=== PATIENT | female | born 1980 | race Caucasian/White ===

== ENCOUNTER 2021-02-23 07:36 | Inpatient (IN) ==
[2021-02-23] MEDS ORDERED: OXYTOCIN 30 UNITS/500 ML BAG IV PRN (07:45)
[2021-02-23 08:00] LABS: Hematocrit (blood only) 38.1 % (37-47); Hemoglobin 13.1 g/dL (12.0-16.0); Mean Corpuscular Hgb Conc 34.4 g/dL (32-36); Mean Corpuscular Volume 93.2 fL (80-100); Mean Platelet Volume 11.5 fL (7.4-10.4); Platelet Count 170 K/uL (130-400); RDW Coefficient of Variation 13.7 % (11.5-14.5); RDW Standard Deviation 47.2 fL (36.4-46.3); Red Blood Count 4.09 M/uL (4.2-5.4); White Blood Count 8.77 K/uL (4.8-10.8)
--- NOTE | 2021-02-23 09:03 | History & Physical Report ---
Date of Service February 23, 2021 Assessment & Plan (1) Post-dates : (2) Patient desires vaginal after section (): Admission and Anticipated Discharge Date Admission Date: February 23, 2021 History of Present Illness Chief Complaint: induction of labor Primary Care Provider: Haritha Khan PA-C 40 F [id number] admitted for induction of labor for post-dates for post- dates. Previous with scheduled not in labor. Allergies Allergy/AdvReac Type Severity Reaction Status Date / Time No Known Allergies Allergy Verified 02/23/21 09:00 Home Medications Medication Instructions Recorded Confirmed Type prenat.vits,vignesh,iim-njna-iqsin 1 tab PO DAILY 02/23/21 02/23/21 History [ Vitamin] Patient History Medical History (Updated 02/23/21 @ 09:02 by Darrick Gonzales MD) No known health problems Surgical History (Updated 02/23/21 @ 09:02 by Darrick Gonzales MD) Previous section 2004 Social History Smoking Status: Never smoker Second Hand Exposure: No; Do You Dip or Chew Tobacco: No; Tobacco Cessation Education Requested by Patient: No Hx Alcohol Use: No Hx Substance Use: No Preferred Language: Nigerien Communication Ability: Effective 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 Beliefs That Will Affect Care: None marital status: Current Living Situation: Spouse Other Information That Helps Us Care for You: No Feels Safe at Home: Yes Safety Concerns: Feels Safe At This Time Assistive Devices: Contacts and Glasses OB History x1 Review of Systems All systems reviewed & are unremarkable except as noted in HPI & below Physical Exam Constitutional: WD/WN, vitals as above well developed, well groomed and comfortable Eyes: PERRL, conjunctivae normal, anicteric sclerae Respiratory: normal respiratory effort, lungs clear to auscultation Cardiovascular: Rate/Rhythm: regular rate and regular rhythm Chest (Breasts): normal inspection/palpation of breasts Gastrointestinal (Abdomen): Inspection/Auscultation: abdomen normal to inspection Percussion/Palpation: abdomen soft Skin: no rashes, warm and dry Neurologic: patellar DTR's 2+ bilat, sensation intact Psychiatric: A+Ox3, euthymic affect Genitourinary: normal external appearance OB Exam Abdomen: + heart tones, + vertex, + estimated weight (7-7.5 lbs) and + irregular contractions Manual OB Exam: + cervical dilation fingertip, + cervical effacement 50% and + station high OB Exam Monitor Tracing: + external FHT monitor used, + external uterine monitor used and + category I Cervix soft Results & Data ([place]) Vital Signs (Past 12 Hours) Vital Signs Temp Pulse Resp BP 02/23/21 07:54 36.6 C 72 20 123/83 02/23/21 07:50 72 123/83 Laboratory Results GBS is negative Covid is pending Code Status & VTE Plan VTE Prophylaxis Plan VTE Prophylaxis will be ordered: No
[2021-02-23] MEDS: LACTATED RINGER'S 1,000 ML IV PRN ×3 (10:16→20:11)
[2021-02-23] MEDS: OXYTOCIN 30 UNITS/500 ML BAG IV PRN (10:17)
[2021-02-23] MEDS: BUTORPHANOL TARTRATE 1 MG/ML VIAL IV PRN ×2 (14:54→16:57)
--- NOTE | 2021-02-23 18:49 | Labor Progress Brief Note ---
Date of Service February 23, 2021 Subjective Reason For Note: Requested By Patient Assessment & Plan Admission and Anticipated Discharge Date Admission Date: February 23, 2021 Physical Exam Genitourinary: Manual OB Exam: + cervical dilation 1 cm, + cervical effacement 60% and + station -2 OB Exam Monitor Tracing: + external FHT monitor used, + external uterine monitor used and + category I option for patient to continue labor, stop Oxytocin and place Edward in cervix with rest overnight or proceed with if desired Results & Data ([facility]) Vital Signs (Past 12 Hours) Vital Signs Temp Pulse Resp BP 02/23/21 17:17 80 20 110/75 02/23/21 17:02 36.6 C 72 20 108/76 02/23/21 15:19 71 111/76 02/23/21 13:55 36.4 C L 20 02/23/21 13:51 72 98/62 L 02/23/21 12:50 67 99/63 L 02/23/21 12:04 79 99/68 L 02/23/21 10:54 86 102/70 02/23/21 09:51 83 116/70 02/23/21 09:49 36.6 C 83 20 116/70 02/23/21 07:54 36.6 C 72 20 123/83 02/23/21 07:50 72 123/83
[2021-02-23] MEDS ORDERED: ePHEDrine sulfate 50 MG/ML AMP ONE (18:53)
[2021-02-23] MEDS ORDERED: fentaNYL citrate 100 MCG/2 ML VIAL ONE (18:53)
[2021-02-23] MEDS ORDERED: BUPIVACAINE 0.25% 30 ML VIAL ONE (18:53)
[2021-02-23] MEDS ORDERED: SODIUM CHLORIDE 0.9% INJ 10 ML VIAL ONE (18:53)
[2021-02-23] MEDS ORDERED: fentaNYL 2MCG/ML ROPIVACAINE 1.25MG/ML 100 ML BAG EPI ONE (18:54)
--- NOTE | 2021-02-23 19:12 | Anesthesiology Consultation ---
Date of Service February 23, 2021 Assessment & Plan (1) Encounter for pre-operative examination: Chart Review Chart Review: Acceptable Risk for Labor Epidural History Height/Weight Height: 5 ft 5 in Weight: 72.575 kg Allergies Allergy/AdvReac Type Severity Reaction Status Date / Time No Known Allergies Allergy Verified 02/23/21 09:00 Medications Home Medications Medication Instructions Recorded Confirmed Last Taken prenat.vits,vignesh,ost-eulb-jiiow 1 tab PO DAILY 02/23/21 02/23/21 02/22/21 08:00 [ Vitamin] Active Medications Generic Name Dose Route Start Last Admin Trade Name Freq PRN Reason Stop Dose Admin Butorphanol Tartrate 1 mg 02/23/21 14:32 02/23/21 16:57 Butorphanol Tartrate 1 Mg/Ml Vial IV 03/25/21 14:31 1 mg Q2HWA PRN Administration Pain Lactated Ringer's 1,000 mls @ 125 mls/hr 02/23/21 07:45 02/23/21 18:25 Lr IV 02/25/21 07:44 125 mls/hr .Q8H PRN Administration L&D Protocol Protocol Oxytocin 30 units in 500 mls @ 0 mls/hr 02/23/21 08:54 02/23/21 19:04 Pitocin IV 02/25/21 08:53 0 units/hr .Q0M PRN 0 mls/hr Labor Induction/Augmentation Titration Protocol 0 UNITS/HR Past Medical History Medical History No known health problems Past Surgical History Surgical History Previous section 2004 Social History Smoking Status: Never smoker Do You Dip or Chew Tobacco: No Hx Alcohol Use: No Hx Substance Use: No substance use type: does not use Physical Exam Vital Signs Last Vital Signs Temp 36.6 C 02/23/21 17:02 Pulse 80 02/23/21 17:17 Resp 20 02/23/21 17:17 BP 110/75 02/23/21 17:17 Testing Laboratory Results 02/23/21 07:51 Blood Type A Positive 02/23/21 07:51 Antibody Screen NEGATIVE 02/23/21 07:51
[2021-02-23] MEDS ORDERED: ONDANSETRON INJ 2 MG/ML 2 ML VIAL IV PRN (19:34)
[2021-02-23] MEDS ORDERED: NALOXONE HCL 1 MG in SODIUM CHLORIDE 0.9% 1000ML 1,000 ML IV PRN (19:34)
[2021-02-23] MEDS ORDERED: ePHEDrine sulfate 50 MG/ML AMP IV PRN (19:34)
[2021-02-23] MEDS ORDERED: NALOXONE HCL 0.4 MG/1 ML VIAL/CARP IV PRN (19:34)
--- NOTE | 2021-02-23 20:46 | Labor Progress Brief Note ---
Date of Service February 23, 2021 Assessment & Plan Admission and Anticipated Discharge Date Admission Date: February 23, 2021 Physical Exam Genitourinary: Manual OB Exam: + cervical dilation 1 cm, + cervical effacement 60% and + station high OB Exam Monitor Tracing: + external FHT monitor used, + external uterine monitor used and + category I Edward placed in cervix with 30 ml. saline Edward catheter placed in bladder Results & Data ([facility]) Vital Signs (Past 12 Hours) Vital Signs Temp Pulse Resp BP Pulse Ox 02/23/21 20:42 101 H 100 02/23/21 20:37 80 100 02/23/21 20:34 95 H 102/70 02/23/21 20:32 71 100/64 97 02/23/21 20:30 64 103/61 02/23/21 20:28 96 H 96/61 L 02/23/21 20:27 94 H 99 02/23/21 20:26 95 H 97/61 L 02/23/21 20:24 62 105/62 02/23/21 20:22 65 100/59 L 99 02/23/21 20:20 113 H 98/62 L 02/23/21 20:18 85 101/60 02/23/21 20:17 68 100 02/23/21 20:16 64 106/63 02/23/21 20:14 57 L 103/60 02/23/21 20:13 56 L 99/61 L 02/23/21 20:12 56 L 98 02/23/21 20:10 64 82/50 L 02/23/21 20:09 76 91 02/23/21 20:07 98 H 100 02/23/21 20:02 87 97 02/23/21 19:58 62 99/55 L 02/23/21 19:57 65 94 02/23/21 19:55 18 02/23/21 19:52 94 H 98 02/23/21 19:50 18 02/23/21 19:47 66 96 02/23/21 19:45 18 02/23/21 19:42 71 98 02/23/21 19:40 18 02/23/21 19:39 83 96/57 L 02/23/21 19:38 78 99/59 L 02/23/21 19:37 102 H 97 02/23/21 19:36 63 102/61 02/23/21 19:35 18 02/23/21 19:34 72 105/66 02/23/21 19:32 68 101/56 L 98 02/23/21 19:30 20 02/23/21 19:27 74 99 02/23/21 19:25 89 79 L 02/23/21 19:22 75 100 02/23/21 19:15 36.8 C 20 02/23/21 17:17 80 20 110/75 02/23/21 17:02 36.6 C 72 20 108/76 02/23/21 15:19 71 111/76 02/23/21 13:55 36.4 C L 20 02/23/21 13:51 72 98/62 L 02/23/21 12:50 67 99/63 L 02/23/21 12:04 79 99/68 L 02/23/21 10:54 86 102/70 02/23/21 09:51 83 116/70 02/23/21 09:49 36.6 C 83 20 116/70
[2021-02-24] MEDS: LACTATED RINGER'S 1,000 ML IV PRN ×2 (03:50→11:54)
[2021-02-24] MEDS: fentaNYL 2MCG/ML ROPIVACAINE 1.25MG/ML 100 ML BAG EPI PRN ×2 (04:20→13:20)
--- NOTE | 2021-02-24 07:48 | Obstetrical Progress Note ---
Date of Service February 24, 2021 Assessment & Plan Admission and Anticipated Discharge Date Admission Date: February 23, 2021 Subjective Patient seen and examined. I reviewed her records from office and confirmed with the patient. She is a 40-year-old female with history of prior in 2004 for abnormality. She opted for TOLAC/, understood the risks and signed an informed consent yesterday with Dr. Hoff. She denies any medical problems, denies smoking, alcohol or drug use. They she denies any history of STDs, including genital herpes, chlamydia or gonorrhea. Her has been uncomplicated except advanced maternal age and opted to decline genetic testing. GBS is negative. She was admitted yesterday and received low-dose of oxytocin per protocol and then Edward bulb was inserted last night around 9 PM with again low dose of Pitocin at 1 milliunits/min for cervical ripening. She was painful and received epidural for pain and now comfortable. heart rate had been category 1, toco shows irregular contractions every 5 to 6 minutes. I performed a bedside ultrasound and fetus is vertex. We discussed options either continuing with induction of labor versus repeat . She states she wants to try TOLAC/ and is open to repeat if it fails. Vaginal exam, Edward bulb was in the upper vagina and was removed by myself. Cervix is 2 cm dilated 70% effaced head -2 with a bulging amniotic bag, AROM was done after verbal consent was obtained and clear fluid was obtained. We will continue to monitor closely and increase low-dose oxytocin per protocol. All questions were answered. Results & Data ([facility]) Vital Signs (Past 12 Hours) Vital Signs Temp Pulse Resp BP Pulse Ox 02/24/21 07:42 85 99 02/24/21 07:38 83 91 02/24/21 07:37 96 H 96 02/24/21 07:35 85 112/69 02/24/21 07:32 86 100 02/24/21 07:27 80 99 02/24/21 07:22 87 100 02/24/21 07:20 75 100/64 02/24/21 07:17 71 20 99 02/24/21 07:12 75 99 02/24/21 07:09 36.7 C 73 20 106/64 98 02/24/21 07:07 74 99 02/24/21 07:05 85 106/64 02/24/21 07:02 95 H 100 02/24/21 06:57 80 97 02/24/21 06:52 91 H 100 02/24/21 06:50 75 100/64 02/24/21 06:47 67 98 02/24/21 06:42 85 96 02/24/21 06:37 75 98 02/24/21 06:35 69 102/62 02/24/21 06:32 78 99 02/24/21 06:27 62 96 02/24/21 06:22 69 96 02/24/21 06:20 96 H 97/63 L 02/24/21 06:17 70 96 02/24/21 06:12 95 H 96 02/24/21 06:07 69 96 02/24/21 06:05 81 94/65 L 02/24/21 06:02 82 96 02/24/21 05:57 79 96 02/24/21 05:52 101 H 96 02/24/21 05:50 106 H 85/60 L 02/24/21 05:47 102 H 96 02/24/21 05:42 74 95 02/24/21 05:37 93 H 96 02/24/21 05:35 66 99/58 L 02/24/21 05:32 68 96 02/24/21 05:27 95 H 96 02/24/21 05:22 71 96 02/24/21 05:21 63 97/57 L 02/24/21 05:17 80 96 02/24/21 05:12 89 96 02/24/21 05:07 70 96 02/24/21 05:06 76 98/61 L 02/24/21 05:02 93 H 96 02/24/21 05:01 18 02/24/21 04:57 66 96 02/24/21 04:52 85 97 02/24/21 04:50 80 94/62 L 02/24/21 04:47 67 96 02/24/21 04:42 71 96 02/24/21 04:37 70 97 02/24/21 04:35 68 96/57 L 02/24/21 04:32 77 96 02/24/21 04:30 16 02/24/21 04:27 75 96 02/24/21 04:26 36.7 C 18 02/24/21 04:22 79 98 02/24/21 04:20 84 98/63 L 02/24/21 04:17 75 98 02/24/21 04:12 79 98 02/24/21 04:07 65 97 02/24/21 04:05 74 98/64 L 02/24/21 04:02 66 98 02/24/21 04:00 16 02/24/21 03:57 78 96 02/24/21 03:52 64 97 02/24/21 03:51 64 104/58 L 02/24/21 03:47 81 96 02/24/21 03:42 76 95 02/24/21 03:37 77 96 02/24/21 03:35 77 98/58 L 02/24/21 03:32 98 H 96 02/24/21 03:27 69 96 02/24/21 03:22 78 96 02/24/21 03:21 67 98/56 L 02/24/21 03:17 73 96 02/24/21 03:12 69 96 02/24/21 03:07 86 96 02/24/21 03:05 86 94/58 L 02/24/21 03:02 74 96 02/24/21 03:00 16 02/24/21 02:57 82 96 02/24/21 02:52 71 97 02/24/21 02:51 68 96/56 L 02/24/21 02:47 89 96 02/24/21 02:42 69 96 02/24/21 02:37 79 96 02/24/21 02:35 67 94/56 L 02/24/21 02:32 69 96 02/24/21 02:30 16 02/24/21 02:27 80 96 02/24/21 02:22 71 96 02/24/21 02:20 72 95/56 L 02/24/21 02:17 76 96 02/24/21 02:12 71 96 02/24/21 02:07 63 97 02/24/21 02:05 59 L 97/56 L 02/24/21 02:02 58 L 94 02/24/21 01:57 108 H 98 02/24/21 01:52 69 97 02/24/21 01:50 90 95/65 L 02/24/21 01:47 89 97 02/24/21 01:42 86 97 02/24/21 01:37 100 H 97 02/24/21 01:35 69 99/62 L 02/24/21 01:32 67 97 02/24/21 01:27 96 H 97 02/24/21 01:22 65 97 02/24/21 01:21 66 104/63 02/24/21 01:17 101 H 96 02/24/21 01:12 98 H 96 02/24/21 01:07 99 H 97 02/24/21 01:05 100 H 92/63 L 02/24/21 01:02 88 96 02/24/21 01:00 18 02/24/21 00:57 95 H 97 02/24/21 00:52 67 97 02/24/21 00:50 105 H 90/64 L 02/24/21 00:47 91 H 97 02/24/21 00:42 98 H 97 02/24/21 00:37 102 H 97 02/24/21 00:35 61 105/58 L 02/24/21 00:32 76 96 02/24/21 00:30 16 02/24/21 00:27 89 97 02/24/21 00:22 93 H 97 02/24/21 00:20 88 102/65 02/24/21 00:17 102 H 96 02/24/21 00:12 99 H 97 02/24/21 00:07 99 H 98 02/24/21 00:05 99 H 95/62 L 02/24/21 00:02 75 97 02/24/21 00:00 16 02/23/21 23:57 67 96 02/23/21 23:52 61 97 02/23/21 23:50 74 102/64 02/23/21 23:47 81 98 02/23/21 23:42 60 98 02/23/21 23:37 76 97 02/23/21 23:36 73 111/62 02/23/21 23:32 65 98 02/23/21 23:27 72 98 02/23/21 23:22 63 98 02/23/21 23:20 74 106/73 02/23/21 23:17 101 H 97 02/23/21 23:12 65 97 02/23/21 23:07 82 98 02/23/21 23:05 89 102/69 02/23/21 23:02 74 98 05/25/21 23:01 36.7 C 18 02/23/21 22:57 76 96 02/23/21 22:52 67 97 02/23/21 22:50 69 100/63 05 22:47 90 96 02/23/21 22:42 67 96 02/23/21 22:37 74 96 02/23/21 22:35 90 102/69 05 22:32 75 96 02/23/21 22:30 18 02/23/21 22:27 83 96 02/23/21 22:22 81 96 02/23/21 22:20 93 H 99/66 L 02/23/21 22:17 92 H 97 02/23/21 22:12 66 96 02/23/21 22:07 73 96 02/23/21 22:05 72 103/61 02/23/21 22:02 74 97 02/23/21 22:00 16 02/23/21 21:57 88 96 02/23/21 21:52 67 97 02/23/21 21:50 85 109/65 05 21:47 96 H 96 02/23/21 21:42 67 96 02/23/21 21:37 98 H 96 02/23/21 21:35 78 108/63 02/23/21 21:32 68 96 02/23/21 21:30 16 02/23/21 21:27 96 H 96 02/23/21 21:22 70 96 02/23/21 21:21 96 H 107/66 05 21:17 87 97 02/23/21 21:12 69 97 02/23/21 21:07 75 97 02/23/21 21:05 91 H 108/67 05 21:02 91 H 100 05 21:00 16 05 20:57 72 98 05 20:52 83 98 05 20:51 67 106/64 05 20:47 94 H 100 0521 20:45 18 05 20:42 101 H 100 05 20:37 80 100 05 20:34 95 H 102/70 05 20:32 71 100/64 97 05 20:30 64 18 103/61 02/23/21 20:28 96 H 96/61 L 02/23/21 20:27 94 H 99 02/23/21 20:26 95 H 97/61 L 02/23/21 20:24 62 105/62 02/23/21 20:22 65 100/59 L 99 02/23/21 20:20 113 H 98/62 L 02/23/21 20:18 85 101/60 02/23/21 20:17 68 100 02/23/21 20:16 64 106/63 02/23/21 20:15 18 02/23/21 20:14 57 L 103/60 02/23/21 20:13 56 L 99/61 L 02/23/21 20:12 56 L 98 02/23/21 20:10 64 82/50 L 02/23/21 20:09 76 91 02/23/21 20:07 98 H 100 02/23/21 20:02 87 97 02/23/21 20:00 18 02/23/21 19:58 62 99/55 L 02/23/21 19:57 65 94 02/23/21 19:55 18 02/23/21 19:52 94 H 98 02/23/21 19:50 18 02/23/21 19:47 66 96 02/23/21 19:45 18
[2021-02-24] MEDS ORDERED: CALCIUM CARBONATE 500 MG CHEWABLE TAB PO PRN (07:49)
[2021-02-24] MEDS: OXYTOCIN 30 UNITS/500 ML BAG IV PRN (10:06)
[2021-02-24] MEDS ORDERED: NURSING L&D Epidural Breakthrough Pain Update ONE (13:30)
--- NOTE | 2021-02-24 13:43 | Obstetrical Progress Note ---
Date of Service February 24, 2021 Assessment & Plan Admission and Anticipated Discharge Date Admission Date: February 23, 2021 Subjective Patient is seen and examined She feels pressure FHR had been categ I Emma: ctxs q 2-3 min VE: 3-4 cm/ 70-90% ( one side is thinner), -2, bloody show+ Discussed continue with TOLAC/ or Repeat C section She wants to try longer Continue to monitor closely( both FHR and VB) Results & Data ([facility]) Vital Signs (Past 12 Hours) Vital Signs Temp Pulse Resp BP Pulse Ox 02/24/21 13:37 81 98 02/24/21 13:32 93 H 102/59 L 96 02/24/21 13:27 81 97 02/24/21 13:22 84 98 02/24/21 13:20 90 93 02/24/21 13:17 89 96 02/24/21 13:12 77 97 02/24/21 13:11 36.7 C 75 20 106/66 95 02/24/21 13:10 87 94 02/24/21 13:07 95 H 98 02/24/21 13:02 83 98 02/24/21 13:01 74 106/66 02/24/21 12:59 81 93 02/24/21 12:57 70 100 02/24/21 12:52 78 96 02/24/21 12:47 78 96 02/24/21 12:42 76 98 02/24/21 12:37 70 100 02/24/21 12:32 75 98 02/24/21 12:30 76 122/66 02/24/21 12:27 86 97 02/24/21 12:26 89 90 02/24/21 12:22 80 100 02/24/21 12:18 73 92 02/24/21 12:17 79 98 02/24/21 12:12 71 98 02/24/21 12:07 75 96 02/24/21 12:02 75 99 02/24/21 12:00 72 105/56 L 02/24/21 11:57 69 99 02/24/21 11:52 71 96 02/24/21 11:47 70 97 02/24/21 11:42 68 96 02/24/21 11:37 80 96 02/24/21 11:32 70 98 02/24/21 11:31 67 96/52 L 02/24/21 11:27 74 96 02/24/21 11:22 70 97 02/24/21 11:17 70 98 02/24/21 11:12 71 98 02/24/21 11:07 71 98 02/24/21 11:06 82 93 02/24/21 11:02 78 138/56 L 100 02/24/21 10:58 36.7 C 20 02/24/21 10:57 78 99 02/24/21 10:52 80 99 02/24/21 10:49 74 92 02/24/21 10:47 76 99 02/24/21 10:42 73 98 02/24/21 10:37 82 99 02/24/21 10:32 74 100 02/24/21 10:31 83 97/56 L 02/24/21 10:30 20 02/24/21 10:27 76 98 02/24/21 10:22 77 100 02/24/21 10:17 77 99 02/24/21 10:16 72 93 02/24/21 10:12 74 100 02/24/21 10:07 76 99 02/24/21 10:02 76 97/54 L 99 02/24/21 10:00 20 02/24/21 09:57 76 99 02/24/21 09:52 86 100 02/24/21 09:47 79 100 02/24/21 09:42 80 99 02/24/21 09:37 77 100 02/24/21 09:36 90 92 02/24/21 09:32 73 99 02/24/21 09:31 72 105/57 L 02/24/21 09:30 20 02/24/21 09:27 68 99 02/24/21 09:22 75 98 02/24/21 09:17 74 100 02/24/21 09:15 81 93 02/24/21 09:12 78 99 02/24/21 09:07 76 100 02/24/21 09:06 20 02/24/21 09:02 77 102/62 95 02/24/21 09:00 36.7 C 02/24/21 08:57 73 99 02/24/21 08:52 78 100 02/24/21 08:47 71 98 02/24/21 08:42 75 99 02/24/21 08:37 71 99 05/26/21 08:32 69 100 02/24/21 08:30 79 106/68 02/24/21 08:29 79 93 02/24/21 08:27 73 100 02/24/21 08:22 85 99 02/24/21 08:20 75 102/66 02/24/21 08:17 71 100 02/24/21 08:12 72 99 02/24/21 08:07 69 99 02/24/21 08:06 74 112/66 02/24/21 08:02 74 98 02/24/21 08:00 20 02/24/21 07:57 77 99 02/24/21 07:52 79 79 L 02/24/21 07:51 71 117/62 02/24/21 07:47 84 99 02/24/21 07:46 81 93 02/24/21 07:45 20 02/24/21 07:42 85 99 02/24/21 07:38 83 91 02/24/21 07:37 96 H 96 02/24/21 07:35 85 112/69 02/24/21 07:32 86 100 02/24/21 07:30 20 02/24/21 07:27 80 99 02/24/21 07:22 87 100 02/24/21 07:20 75 100/64 02/24/21 07:17 71 20 99 02/24/21 07:12 75 99 02/24/21 07:09 36.7 C 73 20 106/64 98 02/24/21 07:07 74 99 02/24/21 07:05 85 106/64 02/24/21 07:02 95 H 100 02/24/21 06:57 80 97 02/24/21 06:52 91 H 100 02/24/21 06:50 75 100/64 02/24/21 06:47 67 98 02/24/21 06:42 85 96 02/24/21 06:37 75 98 02/24/21 06:35 69 102/62 02/24/21 06:32 78 99 02/24/21 06:27 62 96 02/24/21 06:22 69 96 02/24/21 06:20 96 H 97/63 L 02/24/21 06:17 70 96 02/24/21 06:12 95 H 96 02/24/21 06:07 69 96 02/24/21 06:05 81 94/65 L 02/24/21 06:02 82 96 02/24/21 05:57 79 96 02/24/21 05:52 101 H 96 02/24/21 05:50 106 H 85/60 L 02/24/21 05:47 102 H 96 02/24/21 05:42 74 95 02/24/21 05:37 93 H 96 02/24/21 05:35 66 99/58 L 02/24/21 05:32 68 96 02/24/21 05:27 95 H 96 02/24/21 05:22 71 96 02/24/21 05:21 63 97/57 L 02/24/21 05:17 80 96 02/24/21 05:12 89 96 02/24/21 05:07 70 96 02/24/21 05:06 76 98/61 L 02/24/21 05:02 93 H 96 02/24/21 05:01 18 02/24/21 04:57 66 96 02/24/21 04:52 85 97 02/24/21 04:50 80 94/62 L 02/24/21 04:47 67 96 02/24/21 04:42 71 96 02/24/21 04:37 70 97 02/24/21 04:35 68 96/57 L 02/24/21 04:32 77 96 02/24/21 04:30 16 02/24/21 04:27 75 96 02/24/21 04:26 36.7 C 18 02/24/21 04:22 79 98 02/24/21 04:20 84 98/63 L 02/24/21 04:17 75 98 02/24/21 04:12 79 98 02/24/21 04:07 65 97 02/24/21 04:05 74 98/64 L 02/24/21 04:02 66 98 02/24/21 04:00 16 02/24/21 03:57 78 96 02/24/21 03:52 64 97 02/24/21 03:51 64 104/58 L 02/24/21 03:47 81 96 02/24/21 03:42 76 95 02/24/21 03:37 77 96 02/24/21 03:35 77 98/58 L 02/24/21 03:32 98 H 96 02/24/21 03:27 69 96 02/24/21 03:22 78 96 02/24/21 03:21 67 98/56 L 02/24/21 03:17 73 96 02/24/21 03:12 69 96 02/24/21 03:07 86 96 02/24/21 03:05 86 94/58 L 02/24/21 03:02 74 96 02/24/21 03:00 16 02/24/21 02:57 82 96 02/24/21 02:52 71 97 02/24/21 02:51 68 96/56 L 02/24/21 02:47 89 96 02/24/21 02:42 69 96 02/24/21 02:37 79 96 02/24/21 02:35 67 94/56 L 02/24/21 02:32 69 96 02/24/21 02:30 16 02/24/21 02:27 80 96 02/24/21 02:22 71 96 02/24/21 02:20 72 95/56 L 02/24/21 02:17 76 96 02/24/21 02:12 71 96 02/24/21 02:07 63 97 02/24/21 02:05 59 L 97/56 L 02/24/21 02:02 58 L 94 02/24/21 01:57 108 H 98 02/24/21 01:52 69 97 02/24/21 01:50 90 95/65 L 02/24/21 01:47 89 97 02/24/21 01:42 86 97
[2021-02-24] MEDS ORDERED: D5W AND NSS 1,000 ML IV SCH (14:00)
--- NOTE | 2021-02-24 15:20 | Obstetrical Progress Note ---
Date of Service February 24, 2021 Assessment & Plan Admission and Anticipated Discharge Date Admission Date: February 23, 2021 Subjective Patient is reevaluated She feels ctxs and pressure VE: 3-4 cm/ 70-90%/ -2, bloody show less, about 10 cc on the pad since last exam FHR categ I, occasional early decels [place]: ctxs q 1-3 min AP: 40 yo at 40.5 wks, IOL for TOLAC/ since yesterday am AROM'ed with pitocin since this morning ( 07:40 am) No significant cervical change nor station Recommended repeat Csection at this point. Discussed the risks of major surgery as bleeding, infection, injury to surrounding organs like bowels bladder, and longer recovery She still does not want Csection Likes to think about it and decide If she decided for Csection she desires tubal ligation. Discussed the risks of BTL and failure with ectopic and possible need for surgery. Discussed alternatives and she understands all. Results & Data ([facility]) Vital Signs (Past 12 Hours) Vital Signs Temp Pulse Resp BP Pulse Ox 02/24/21 15:12 95 H 100 02/24/21 15:07 91 H 100 02/24/21 15:02 85 99/55 L 97 02/24/21 14:57 70 98 02/24/21 14:55 89 90 02/24/21 14:52 85 100 02/24/21 14:47 82 100 02/24/21 14:42 90 95 02/24/21 14:37 85 99 02/24/21 14:34 81 85 L 02/24/21 14:32 80 100 02/24/21 14:31 84 109/67 02/24/21 14:27 82 100 02/24/21 14:22 84 99 02/24/21 14:20 85 93 02/24/21 14:17 84 100 02/24/21 14:13 79 92 02/24/21 14:12 79 96 02/24/21 14:07 86 96 02/24/21 14:03 83 91 02/24/21 14:02 80 110/59 L 99 02/24/21 13:57 79 97 02/24/21 13:56 90 89 L 02/24/21 13:52 85 98 02/24/21 13:47 80 100 02/24/21 13:42 78 98 02/24/21 13:37 81 98 02/24/21 13:32 93 H 102/59 L 96 02/24/21 13:27 81 97 02/24/21 13:22 84 98 02/24/21 13:20 90 93 02/24/21 13:17 89 96 02/24/21 13:12 77 97 02/24/21 13:11 36.7 C 75 20 106/66 95 02/24/21 13:10 87 94 02/24/21 13:07 95 H 98 02/24/21 13:02 83 98 02/24/21 13:01 74 106/66 02/24/21 12:59 81 93 02/24/21 12:57 70 100 02/24/21 12:52 78 96 02/24/21 12:47 78 96 02/24/21 12:42 76 98 02/24/21 12:37 70 100 02/24/21 12:32 75 98 02/24/21 12:30 76 122/66 02/24/21 12:27 86 97 02/24/21 12:26 89 90 02/24/21 12:22 80 100 02/24/21 12:18 73 92 02/24/21 12:17 79 98 02/24/21 12:12 71 98 02/24/21 12:07 75 96 02/24/21 12:02 75 99 02/24/21 12:00 72 105/56 L 02/24/21 11:57 69 99 02/24/21 11:52 71 96 02/24/21 11:47 70 97 02/24/21 11:42 68 96 02/24/21 11:37 80 96 02/24/21 11:32 70 98 02/24/21 11:31 67 96/52 L 02/24/21 11:27 74 96 02/24/21 11:22 70 97 02/24/21 11:17 70 98 02/24/21 11:12 71 98 02/24/21 11:07 71 98 02/24/21 11:06 82 93 02/24/21 11:02 78 138/56 L 100 02/24/21 10:58 36.7 C 20 02/24/21 10:57 78 99 02/24/21 10:52 80 99 02/24/21 10:49 74 92 02/24/21 10:47 76 99 02/24/21 10:42 73 98 02/24/21 10:37 82 99 02/24/21 10:32 74 100 02/24/21 10:31 83 97/56 L 02/24/21 10:30 20 02/24/21 10:27 76 98 02/24/21 10:22 77 100 02/24/21 10:17 77 99 02/24/21 10:16 72 93 02/24/21 10:12 74 100 02/24/21 10:07 76 99 02/24/21 10:02 76 97/54 L 99 02/24/21 10:00 20 02/24/21 09:57 76 99 02/24/21 09:52 86 100 02/24/21 09:47 79 100 02/24/21 09:42 80 99 02/24/21 09:37 77 100 02/24/21 09:36 90 92 02/24/21 09:32 73 99 02/24/21 09:31 72 105/57 L 02/24/21 09:30 20 02/24/21 09:27 68 99 02/24/21 09:22 75 98 02/24/21 09:17 74 100 02/24/21 09:15 81 93 02/24/21 09:12 78 99 02/24/21 09:07 76 100 02/24/21 09:06 20 02/24/21 09:02 77 102/62 95 02/24/21 09:00 36.7 C 02/24/21 08:57 73 99 02/24/21 08:52 78 100 02/24/21 08:47 71 98 02/24/21 08:42 75 99 02/24/21 08:37 71 99 02/24/21 08:32 69 100 02/24/21 08:30 79 106/68 02/24/21 08:29 79 93 02/24/21 08:27 73 100 02/24/21 08:22 85 99 02/24/21 08:20 75 102/66 02/24/21 08:17 71 100 02/24/21 08:12 72 99 02/24/21 08:07 69 99 02/24/21 08:06 74 112/66 02/24/21 08:02 74 98 02/24/21 08:00 20 02/24/21 07:57 77 99 02/24/21 07:52 79 79 L 02/24/21 07:51 71 117/62 02/24/21 07:47 84 99 02/24/21 07:46 81 93 02/24/21 07:45 20 02/24/21 07:42 85 99 02/24/21 07:38 83 91 02/24/21 07:37 96 H 96 02/24/21 07:35 85 112/69 02/24/21 07:32 86 100 02/24/21 07:30 20 02/24/21 07:27 80 99 02/24/21 07:22 87 100 02/24/21 07:20 75 100/64 02/24/21 07:17 71 20 99 02/24/21 07:12 75 99 02/24/21 07:09 36.7 C 73 20 106/64 98 02/24/21 07:07 74 99 02/24/21 07:05 85 106/64 02/24/21 07:02 95 H 100 02/24/21 06:57 80 97 02/24/21 06:52 91 H 100 02/24/21 06:50 75 100/64 02/24/21 06:47 67 98 02/24/21 06:42 85 96 02/24/21 06:37 75 98 02/24/21 06:35 69 102/62 02/24/21 06:32 78 99 02/24/21 06:27 62 96 02/24/21 06:22 69 96 02/24/21 06:20 96 H 97/63 L 02/24/21 06:17 70 96 02/24/21 06:12 95 H 96 02/24/21 06:07 69 96 02/24/21 06:05 81 94/65 L 02/24/21 06:02 82 96 02/24/21 05:57 79 96 02/24/21 05:52 101 H 96 02/24/21 05:50 106 H 85/60 L 02/24/21 05:47 102 H 96 02/24/21 05:42 74 95 02/24/21 05:37 93 H 96 02/24/21 05:35 66 99/58 L 02/24/21 05:32 68 96 02/24/21 05:27 95 H 96 02/24/21 05:22 71 96 02/24/21 05:21 63 97/57 L 02/24/21 05:17 80 96 02/24/21 05:12 89 96 02/24/21 05:07 70 96 02/24/21 05:06 76 98/61 L 02/24/21 05:02 93 H 96 02/24/21 05:01 18 02/24/21 04:57 66 96 02/24/21 04:52 85 97 02/24/21 04:50 80 94/62 L 02/24/21 04:47 67 96 02/24/21 04:42 71 96 02/24/21 04:37 70 97 02/24/21 04:35 68 96/57 L 02/24/21 04:32 77 96 02/24/21 04:30 16 02/24/21 04:27 75 96 02/24/21 04:26 36.7 C 18 02/24/21 04:22 79 98 02/24/21 04:20 84 98/63 L 02/24/21 04:17 75 98 02/24/21 04:12 79 98 02/24/21 04:07 65 97 02/24/21 04:05 74 98/64 L 02/24/21 04:02 66 98 02/24/21 04:00 16 02/24/21 03:57 78 96 02/24/21 03:52 64 97 02/24/21 03:51 64 104/58 L 02/24/21 03:47 81 96 02/24/21 03:42 76 95 02/24/21 03:37 77 96 02/24/21 03:35 77 98/58 L 02/24/21 03:32 98 H 96 02/24/21 03:27 69 96 02/24/21 03:22 78 96 02/24/21 03:21 67 98/56 L 02/24/21 03:17 73 96
--- NOTE | 2021-02-24 15:56 | Obstetrical Progress Note ---
Date of Service February 24, 2021 Assessment & Plan Admission and Anticipated Discharge Date Admission Date: February 23, 2021 Subjective Patient and her thought about this and decided to go forward with Repeat C section and tubal ligation. She understands the risks and signed an informed consent. All questions were answered. Results & Data ([facility]) Vital Signs (Past 12 Hours) Vital Signs Temp Pulse Resp BP Pulse Ox 02/24/21 15:52 98 H 99 02/24/21 15:47 93 H 100 02/24/21 15:42 87 100 02/24/21 15:37 85 100 02/24/21 15:32 88 95 02/24/21 15:31 80 124/68 02/24/21 15:27 92 H 99 02/24/21 15:22 74 98 02/24/21 15:17 36.8 C 86 18 94 02/24/21 15:15 82 88 L 02/24/21 15:12 95 H 100 02/24/21 15:07 91 H 100 02/24/21 15:02 85 99/55 L 97 02/24/21 14:57 70 98 02/24/21 14:55 89 90 02/24/21 14:52 85 100 02/24/21 14:47 82 100 02/24/21 14:42 90 95 02/24/21 14:37 85 99 02/24/21 14:34 81 85 L 02/24/21 14:32 80 100 02/24/21 14:31 84 109/67 02/24/21 14:27 82 100 02/24/21 14:22 84 99 02/24/21 14:20 85 93 02/24/21 14:17 84 100 02/24/21 14:13 79 92 02/24/21 14:12 79 96 02/24/21 14:07 86 96 02/24/21 14:03 83 91 02/24/21 14:02 80 110/59 L 99 02/24/21 13:57 79 97 02/24/21 13:56 90 89 L 02/24/21 13:52 85 98 02/24/21 13:47 80 100 02/24/21 13:42 78 98 02/24/21 13:37 81 98 02/24/21 13:32 93 H 102/59 L 96 02/24/21 13:27 81 97 02/24/21 13:22 84 98 02/24/21 13:20 90 93 02/24/21 13:17 89 96 02/24/21 13:12 77 97 02/24/21 13:11 36.7 C 75 20 106/66 95 02/24/21 13:10 87 94 02/24/21 13:07 95 H 98 02/24/21 13:02 83 98 02/24/21 13:01 74 106/66 02/24/21 12:59 81 93 02/24/21 12:57 70 100 02/24/21 12:52 78 96 02/24/21 12:47 78 96 02/24/21 12:42 76 98 02/24/21 12:37 70 100 02/24/21 12:32 75 98 02/24/21 12:30 76 122/66 02/24/21 12:27 86 97 02/24/21 12:26 89 90 02/24/21 12:22 80 100 02/24/21 12:18 73 92 02/24/21 12:17 79 98 02/24/21 12:12 71 98 02/24/21 12:07 75 96 02/24/21 12:02 75 99 02/24/21 12:00 72 105/56 L 02/24/21 11:57 69 99 02/24/21 11:52 71 96 02/24/21 11:47 70 97 02/24/21 11:42 68 96 02/24/21 11:37 80 96 02/24/21 11:32 70 98 02/24/21 11:31 67 96/52 L 02/24/21 11:27 74 96 02/24/21 11:22 70 97 02/24/21 11:17 70 98 02/24/21 11:12 71 98 02/24/21 11:07 71 98 02/24/21 11:06 82 93 02/24/21 11:02 78 138/56 L 100 02/24/21 10:58 36.7 C 20 02/24/21 10:57 78 99 02/24/21 10:52 80 99 02/24/21 10:49 74 92 02/24/21 10:47 76 99 02/24/21 10:42 73 98 02/24/21 10:37 82 99 02/24/21 10:32 74 100 02/24/21 10:31 83 97/56 L 02/24/21 10:30 20 02/24/21 10:27 76 98 02/24/21 10:22 77 100 02/24/21 10:17 77 99 02/24/21 10:16 72 93 02/24/21 10:12 74 100 02/24/21 10:07 76 99 02/24/21 10:02 76 97/54 L 99 02/24/21 10:00 20 02/24/21 09:57 76 99 02/24/21 09:52 86 100 02/24/21 09:47 79 100 02/24/21 09:42 80 99 02/24/21 09:37 77 100 02/24/21 09:36 90 92 02/24/21 09:32 73 99 02/24/21 09:31 72 105/57 L 02/24/21 09:30 20 02/24/21 09:27 68 99 02/24/21 09:22 75 98 02/24/21 09:17 74 100 02/24/21 09:15 81 93 02/24/21 09:12 78 99 02/24/21 09:07 76 100 02/24/21 09:06 20 02/24/21 09:02 77 102/62 95 02/24/21 09:00 36.7 C 02/24/21 08:57 73 99 02/24/21 08:52 78 100 02/24/21 08:47 71 98 02/24/21 08:42 75 99 02/24/21 08:37 71 99 02/24/21 08:32 69 100 02/24/21 08:30 79 106/68 02/24/21 08:29 79 93 02/24/21 08:27 73 100 02/24/21 08:22 85 99 02/24/21 08:20 75 102/66 02/24/21 08:17 71 100 02/24/21 08:12 72 99 02/24/21 08:07 69 99 02/24/21 08:06 74 112/66 02/24/21 08:02 74 98 02/24/21 08:00 20 02/24/21 07:57 77 99 02/24/21 07:52 79 79 L 02/24/21 07:51 71 117/62 02/24/21 07:47 84 99 02/24/21 07:46 81 93 02/24/21 07:45 20 02/24/21 07:42 85 99 02/24/21 07:38 83 91 02/24/21 07:37 96 H 96 02/24/21 07:35 85 112/69 02/24/21 07:32 86 100 02/24/21 07:30 20 02/24/21 07:27 80 99 02/24/21 07:22 87 100 02/24/21 07:20 75 100/64 02/24/21 07:17 71 20 99 02/24/21 07:12 75 99 02/24/21 07:09 36.7 C 73 20 106/64 98 02/24/21 07:07 74 99 02/24/21 07:05 85 106/64 02/24/21 07:02 95 H 100 02/24/21 06:57 80 97 02/24/21 06:52 91 H 100 02/24/21 06:50 75 100/64 02/24/21 06:47 67 98 02/24/21 06:42 85 96 02/24/21 06:37 75 98 02/24/21 06:35 69 102/62 02/24/21 06:32 78 99 02/24/21 06:27 62 96 02/24/21 06:22 69 96 02/24/21 06:20 96 H 97/63 L 02/24/21 06:17 70 96 02/24/21 06:12 95 H 96 02/24/21 06:07 69 96 02/24/21 06:05 81 94/65 L 02/24/21 06:02 82 96 02/24/21 05:57 79 96 02/24/21 05:52 101 H 96 02/24/21 05:50 106 H 85/60 L 02/24/21 05:47 102 H 96 02/24/21 05:42 74 95 02/24/21 05:37 93 H 96 02/24/21 05:35 66 99/58 L 02/24/21 05:32 68 96 02/24/21 05:27 95 H 96 02/24/21 05:22 71 96 02/24/21 05:21 63 97/57 L 02/24/21 05:17 80 96 02/24/21 05:12 89 96 02/24/21 05:07 70 96 02/24/21 05:06 76 98/61 L 02/24/21 05:02 93 H 96 02/24/21 05:01 18 02/24/21 04:57 66 96 02/24/21 04:52 85 97 02/24/21 04:50 80 94/62 L 02/24/21 04:47 67 96 02/24/21 04:42 71 96 02/24/21 04:37 70 97 02/24/21 04:35 68 96/57 L 02/24/21 04:32 77 96 02/24/21 04:30 16 02/24/21 04:27 75 96 02/24/21 04:26 36.7 C 18 02/24/21 04:22 79 98 02/24/21 04:20 84 98/63 L 02/24/21 04:17 75 98 02/24/21 04:12 79 98 02/24/21 04:07 65 97 02/24/21 04:05 74 98/64 L 02/24/21 04:02 66 98 02/24/21 04:00 16 02/24/21 03:57 78 96
[2021-02-24] MEDS ORDERED: CITRIC ACID/SODIUM CITRATE 15 ML UDC ONE (15:57)
[2021-02-24] MEDS ORDERED: AZITHROMYCIN 500 MG in DEXTROSE 5% 250 ML IV SCH (16:00)
[2021-02-24] MEDS ORDERED: ceFAZolin 2000MG 2,000 MG/15 ML SYR IV SCH (16:00)
[2021-02-24] MEDS ORDERED: LACTATED RINGER'S 1,000 ML IV SCH ×3 (16:00→18:30)
[2021-02-24] MEDS ORDERED: CITRIC ACID/SODIUM CITRATE 15 ML UDC PO SCH (16:00)
[2021-02-24] MEDS ORDERED: LIDOCAINE 2%/EPINEPHRINE 1:200,000 20 ML SDV ONE (16:03)
[2021-02-24 16:22] LABS: Basophils # (auto) 0.01 K/uL (0-0.2); Basophils % (auto) 0.1 %; Eosinophils # (auto) 0.02 K/uL (0-0.5); Eosinophils % (auto) 0.2 %; Hematocrit (blood only) 36.3 % (37-47); Hemoglobin 12.4 g/dL (12.0-16.0); Immature Granulocytes # (auto) 0.06 K/uL (0.00-0.02); Immature Granulocytes % (auto) 0.5 %; Lymphocytes # (auto) 1.13 K/uL (1.2-3.4); Lymphocytes % (auto) 9.8 %; Mean Corpuscular Hemoglobin 31.5 pg (25-34); Mean Corpuscular Hgb Conc 34.2 g/dL (32-36); Mean Corpuscular Volume 92.1 fL (80-100); Mean Platelet Volume 11.5 fL (7.4-10.4); Monocytes # (auto) 0.52 K/uL (0.11-0.59); Monocytes % (auto) 4.5 %; Neutrophils % (auto) 84.9 %; Platelet Count 152 K/uL (130-400); RDW Coefficient of Variation 13.8 % (11.5-14.5); RDW Standard Deviation 45.7 fL (36.4-46.3); Red Blood Count 3.94 M/uL (4.2-5.4); White Blood Count 11.54 K/uL (4.8-10.8)
[2021-02-24] MEDS ORDERED: fentaNYL citrate 100 MCG/2 ML VIAL ONE (17:22)
[2021-02-24] MEDS ORDERED: OXYTOCIN 10 UNITS/ML VIAL ONE ×2 (17:41→17:56)
[2021-02-24] MEDS ORDERED: PHENYLEPHRINE 100MCG/ML 5ML SYR ONE (17:45)
[2021-02-24] MEDS ORDERED: MoRPHine SULFATE PF 1 MG/ML 10 ML AMP/VIAL ONE (17:59)
[2021-02-24] MEDS ORDERED: KETOROLAC 30 MG/ML VIAL IV PRN (18:10)
[2021-02-24] MEDS ORDERED: NALOXONE HCL 0.08 MG in SYRINGE 1.8 ML IV PRN (18:10)
[2021-02-24] MEDS ORDERED: NALOXONE HCL 0.4 MG/1 ML VIAL/CARP IV PRN (18:10)
[2021-02-24] MEDS ORDERED: LACTATED RINGER'S 500 ML IV PRN (18:10)
[2021-02-24] MEDS ORDERED: ONDANSETRON INJ 2 MG/ML 2 ML VIAL IV PRN (18:10)
[2021-02-24] MEDS ORDERED: PROMETHAZINE HCL 25 MG in SODIUM CHLORIDE 0.9% 50 ML IV PRN (18:10)
[2021-02-24] MEDS ORDERED: ePHEDrine sulfate 50 MG/ML AMP IV PRN (18:10)
[2021-02-24] MEDS ORDERED: NALOXONE HCL 1 MG in SODIUM CHLORIDE 0.9% 1000ML 1,000 ML IV PRN (18:10)
[2021-02-24] MEDS ORDERED: diphenhydrAMINE 50 MG/ML VIAL IV PRN (18:10)
[2021-02-24] MEDS ORDERED: MoRPHine SULFATE PF 1 MG/ML 10 ML AMP/VIAL EPI ONE (18:10)
[2021-02-24] MEDS ORDERED: SODIUM CHLORIDE 0.9% 1000ML 1,000 ML IV SCH (18:15)
[2021-02-24] MEDS ORDERED: DC INTRASPINAL MORPHINE SCH (18:15)
[2021-02-24] MEDS ORDERED: NO NARCOTICS OR SEDATIVES SCH (18:15)
[2021-02-24] MEDS ORDERED: MAGNESIUM HYDROXIDE SUSP 30 ML UDC PO PRN (18:23)
[2021-02-24] MEDS ORDERED: HYDROCORTISONE ACETATE 25 MG SUPP PR PRN (18:23)
[2021-02-24] MEDS ORDERED: BENZOCAINE 20% AER SPR 82.5 GM CAN EXT PRN (18:23)
[2021-02-24] MEDS ORDERED: SUPERCREAM 0.870% 15 GM JAR EXT PRN (18:23)
[2021-02-24] MEDS ORDERED: MEASLES, MUMPS & RUBELLA VIRUS VIAL SQ ONE (18:23)
[2021-02-24] MEDS ORDERED: DIPHTHERIA/TETANUS/PERTUSSIS 0.5 ML SYR/VIAL IM ONE (18:23)
[2021-02-24] MEDS ORDERED: SENNA 8.6 MG TAB PO PRN (18:23)
--- NOTE | 2021-02-24 18:24 | Anesthesia Procedure Note ---
Date of Service February 24, 2021 Anesthesia Post Epidural Note Vital Signs Vital Signs: Temp Pulse Resp BP Pulse Ox 36.8 C 87 18 115/65 100 02/24/21 15:17 02/24/21 17:05 02/24/21 15:17 02/24/21 17:05 02/24/21 17:02 Pain Intensity Abdomen: Pain Intensity: 5 Notes Mental Status: alert / awake / arousable Nausea / Vomiting: adequately controlled Pain: adequately controlled Airway Patency, RR, SpO2: stable & adequate BP & HR: stable & adequate Hydration State: stable & adequate Neuraxial Anesthesia: was administered and sensory block is resolving Anesthetic Complications: no major complications apparent Epidural: Removed without complications and With tip intact
[2021-02-24] MEDS ORDERED: OXYTOCIN 20 UNITS in D5W AND LACTATED RINGERS 1,000 ML IV SCH (18:30)
--- NOTE | 2021-02-24 18:38 | Anesthesiology Progress Note ---
Date of Service February 24, 2021 Anesthesia Post Procedure Vital Signs Vital Signs: Temp Pulse Resp BP Pulse Ox 02/24/21 18:32 85 98/55 L 94 02/24/21 17:05 87 115/65 02/24/21 17:02 100 H 100 02/24/21 17:00 86 113/66 02/24/21 16:57 101 H 99 02/24/21 16:52 106 H 99 02/24/21 16:47 104 H 99 02/24/21 16:42 97 H 99 02/24/21 16:37 88 96 02/24/21 16:32 83 99 02/24/21 16:30 96 H 108/64 02/24/21 16:27 92 H 98 02/24/21 16:22 95 H 97 02/24/21 16:19 88 93 02/24/21 16:17 95 H 99 02/24/21 16:12 85 99 02/24/21 16:07 84 100 02/24/21 16:02 95 H 99 02/24/21 16:00 88 116/62 02/24/21 15:58 85 125/73 02/24/21 15:57 86 97 02/24/21 15:52 98 H 99 02/24/21 15:47 93 H 100 02/24/21 15:42 87 100 02/24/21 15:37 85 100 02/24/21 15:32 88 95 02/24/21 15:31 80 124/68 02/24/21 15:27 92 H 99 02/24/21 15:22 74 98 02/24/21 15:17 36.8 C 86 18 94 02/24/21 15:15 82 88 L 02/24/21 15:12 95 H 100 02/24/21 15:07 91 H 100 02/24/21 15:02 85 99/55 L 97 02/24/21 14:57 70 98 02/24/21 14:55 89 90 02/24/21 14:52 85 100 02/24/21 14:47 82 100 02/24/21 14:42 90 95 02/24/21 14:37 85 99 02/24/21 14:34 81 85 L 02/24/21 14:32 80 100 02/24/21 14:31 84 109/67 02/24/21 14:27 82 100 02/24/21 14:22 84 99 02/24/21 14:20 85 93 02/24/21 14:17 84 100 02/24/21 14:13 79 92 02/24/21 14:12 79 96 02/24/21 14:07 86 96 02/24/21 14:03 83 91 02/24/21 14:02 80 110/59 L 99 02/24/21 13:57 79 97 02/24/21 13:56 90 89 L 02/24/21 13:52 85 98 02/24/21 13:47 80 100 02/24/21 13:42 78 98 02/24/21 13:37 81 98 02/24/21 13:32 93 H 102/59 L 96 02/24/21 13:27 81 97 02/24/21 13:22 84 98 02/24/21 13:20 90 93 02/24/21 13:17 89 96 02/24/21 13:12 77 97 02/24/21 13:11 36.7 C 75 20 106/66 95 02/24/21 13:10 87 94 02/24/21 13:07 95 H 98 02/24/21 13:02 83 98 02/24/21 13:01 74 106/66 02/24/21 12:59 81 93 02/24/21 12:57 70 100 02/24/21 12:52 78 96 02/24/21 12:47 78 96 02/24/21 12:42 76 98 02/24/21 12:37 70 100 02/24/21 12:32 75 98 02/24/21 12:30 76 122/66 02/24/21 12:27 86 97 02/24/21 12:26 89 90 02/24/21 12:22 80 100 02/24/21 12:18 73 92 02/24/21 12:17 79 98 02/24/21 12:12 71 98 02/24/21 12:07 75 96 02/24/21 12:02 75 99 02/24/21 12:00 72 105/56 L 02/24/21 11:57 69 99 02/24/21 11:52 71 96 02/24/21 11:47 70 97 02/24/21 11:42 68 96 02/24/21 11:37 80 96 02/24/21 11:32 70 98 02/24/21 11:31 67 96/52 L 02/24/21 11:27 74 96 02/24/21 11:22 70 97 02/24/21 11:17 70 98 02/24/21 11:12 71 98 02/24/21 11:07 71 98 02/24/21 11:06 82 93 02/24/21 11:02 78 138/56 L 100 02/24/21 10:58 36.7 C 20 02/24/21 10:57 78 99 02/24/21 10:52 80 99 02/24/21 10:49 74 92 02/24/21 10:47 76 99 02/24/21 10:42 73 98 02/24/21 10:37 82 99 02/24/21 10:32 74 100 02/24/21 10:31 83 97/56 L 02/24/21 10:30 20 02/24/21 10:27 76 98 02/24/21 10:22 77 100 02/24/21 10:17 77 99 02/24/21 10:16 72 93 02/24/21 10:12 74 100 02/24/21 10:07 76 99 02/24/21 10:02 76 97/54 L 99 02/24/21 10:00 20 02/24/21 09:57 76 99 02/24/21 09:52 86 100 02/24/21 09:47 79 100 02/24/21 09:42 80 99 02/24/21 09:37 77 100 02/24/21 09:36 90 92 02/24/21 09:32 73 99 02/24/21 09:31 72 105/57 L 02/24/21 09:30 20 02/24/21 09:27 68 99 02/24/21 09:22 75 98 02/24/21 09:17 74 100 02/24/21 09:15 81 93 02/24/21 09:12 78 99 02/24/21 09:07 76 100 02/24/21 09:06 20 02/24/21 09:02 77 102/62 95 02/24/21 09:00 36.7 C 02/24/21 08:57 73 99 02/24/21 08:52 78 100 02/24/21 08:47 71 98 02/24/21 08:42 75 99 02/24/21 08:37 71 99 02/24/21 08:32 69 100 02/24/21 08:30 79 106/68 02/24/21 08:29 79 93 02/24/21 08:27 73 100 02/24/21 08:22 85 99 02/24/21 08:20 75 102/66 02/24/21 08:17 71 100 02/24/21 08:12 72 99 02/24/21 08:07 69 99 02/24/21 08:06 74 112/66 02/24/21 08:02 74 98 02/24/21 08:00 20 02/24/21 07:57 77 99 02/24/21 07:52 79 79 L 02/24/21 07:51 71 117/62 02/24/21 07:47 84 99 02/24/21 07:46 81 93 02/24/21 07:45 20 02/24/21 07:42 85 99 02/24/21 07:38 83 91 02/24/21 07:37 96 H 96 02/24/21 07:35 85 112/69 02/24/21 07:32 86 100 02/24/21 07:30 20 02/24/21 07:27 80 99 02/24/21 07:22 87 100 02/24/21 07:20 75 100/64 02/24/21 07:17 71 20 99 02/24/21 07:12 75 99 02/24/21 07:09 36.7 C 73 20 106/64 98 02/24/21 07:07 74 99 02/24/21 07:05 85 106/64 02/24/21 07:02 95 H 100 02/24/21 06:57 80 97 02/24/21 06:52 91 H 100 02/24/21 06:50 75 100/64 02/24/21 06:47 67 98 02/24/21 06:42 85 96 02/24/21 06:37 75 98 02/24/21 06:35 69 102/62 02/24/21 06:32 78 99 02/24/21 06:27 62 96 02/24/21 06:22 69 96 02/24/21 06:20 96 H 97/63 L 02/24/21 06:17 70 96 02/24/21 06:12 95 H 96 02/24/21 06:07 69 96 02/24/21 06:05 81 94/65 L 02/24/21 06:02 82 96 02/24/21 05:57 79 96 02/24/21 05:52 101 H 96 02/24/21 05:50 106 H 85/60 L 02/24/21 05:47 102 H 96 02/24/21 05:42 74 95 02/24/21 05:37 93 H 96 02/24/21 05:35 66 99/58 L 02/24/21 05:32 68 96 02/24/21 05:27 95 H 96 02/24/21 05:22 71 96 02/24/21 05:21 63 97/57 L 02/24/21 05:17 80 96 02/24/21 05:12 89 96 02/24/21 05:07 70 96 02/24/21 05:06 76 98/61 L 02/24/21 05:02 93 H 96 02/24/21 05:01 18 02/24/21 04:57 66 96 02/24/21 04:52 85 97 02/24/21 04:50 80 94/62 L 02/24/21 04:47 67 96 02/24/21 04:42 71 96 02/24/21 04:37 70 97 02/24/21 04:35 68 96/57 L 02/24/21 04:32 77 96 02/24/21 04:30 16 02/24/21 04:27 75 96 02/24/21 04:26 36.7 C 18 02/24/21 04:22 79 98 02/24/21 04:20 84 98/63 L 02/24/21 04:17 75 98 02/24/21 04:12 79 98 02/24/21 04:07 65 97 02/24/21 04:05 74 98/64 L 02/24/21 04:02 66 98 02/24/21 04:00 16 02/24/21 03:57 78 96 02/24/21 03:52 64 97 02/24/21 03:51 64 104/58 L 02/24/21 03:47 81 96 02/24/21 03:42 76 95 02/24/21 03:37 77 96 02/24/21 03:35 77 98/58 L 02/24/21 03:32 98 H 96 02/24/21 03:27 69 96 02/24/21 03:22 78 96 02/24/21 03:21 67 98/56 L 02/24/21 03:17 73 96 02/24/21 03:12 69 96 02/24/21 03:07 86 96 02/24/21 03:05 86 94/58 L 02/24/21 03:02 74 96 02/24/21 03:00 16 02/24/21 02:57 82 96 02/24/21 02:52 71 97 02/24/21 02:51 68 96/56 L 02/24/21 02:47 89 96 02/24/21 02:42 69 96 02/24/21 02:37 79 96 02/24/21 02:35 67 94/56 L 02/24/21 02:32 69 96 02/24/21 02:30 16 02/24/21 02:27 80 96 02/24/21 02:22 71 96 02/24/21 02:20 72 95/56 L 02/24/21 02:17 76 96 02/24/21 02:12 71 96 02/24/21 02:07 63 97 02/24/21 02:05 59 L 97/56 L 02/24/21 02:02 58 L 94 02/24/21 01:57 108 H 98 02/24/21 01:52 69 97 02/24/21 01:50 90 95/65 L 02/24/21 01:47 89 97 02/24/21 01:42 86 97 02/24/21 01:37 100 H 97 02/24/21 01:35 69 99/62 L 02/24/21 01:32 67 97 02/24/21 01:27 96 H 97 02/24/21 01:22 65 97 02/24/21 01:21 66 104/63 02/24/21 01:17 101 H 96 02/24/21 01:12 98 H 96 02/24/21 01:07 99 H 97 02/24/21 01:05 100 H 92/63 L 02/24/21 01:02 88 96 02/24/21 01:00 18 02/24/21 00:57 95 H 97 02/24/21 00:52 67 97 02/24/21 00:50 105 H 90/64 L 02/24/21 00:47 91 H 97 02/24/21 00:42 98 H 97 02/24/21 00:37 102 H 97 02/24/21 00:35 61 105/58 L 02/24/21 00:32 76 96 02/24/21 00:30 16 02/24/21 00:27 89 97 02/24/21 00:22 93 H 97 02/24/21 00:20 88 102/65 02/24/21 00:17 102 H 96 02/24/21 00:12 99 H 97 02/24/21 00:07 99 H 98 02/24/21 00:05 99 H 95/62 L 02/24/21 00:02 75 97 02/24/21 00:00 16 02/23/21 23:57 67 96 02/23/21 23:52 61 97 02/23/21 23:50 74 102/64 02/23/21 23:47 81 98 02/23/21 23:42 60 98 02/23/21 23:37 76 97 02/23/21 23:36 73 111/62 02/23/21 23:32 65 98 02/23/21 23:27 72 98 02/23/21 23:22 63 98 02/23/21 23:20 74 106/73 02/23/21 23:17 101 H 97 02/23/21 23:12 65 97 02/23/21 23:07 82 98 02/23/21 23:05 89 102/69 02/23/21 23:02 74 98 02/23/21 23:01 36.7 C 18 02/23/21 22:57 76 96 02/23/21 22:52 67 97 02/23/21 22:50 69 100/63 02/23/21 22:47 90 96 02/23/21 22:42 67 96 02/23/21 22:37 74 96 02/23/21 22:35 90 102/69 02/23/21 22:32 75 96 02/23/21 22:30 18 02/23/21 22:27 83 96 02/23/21 22:22 81 96 02/23/21 22:20 93 H 99/66 L 02/23/21 22:17 92 H 97 02/23/21 22:12 66 96 05 22:07 73 96 05 22:05 72 103/61 05 22:02 74 97 02/23/21 22:00 16 02/23/21 21:57 88 96 02/23/21 21:52 67 97 05 21:50 85 109/65 05 21:47 96 H 96 02/23/21 21:42 67 96 05 21:37 98 H 96 02/23/21 21:35 78 108/63 05 21:32 68 96 05 21:30 16 02/23/21 21:27 96 H 96 02/23/21 21:22 70 96 02/23/21 21:21 96 H 107/66 02/23/21 21:17 87 97 02/23/21 21:12 69 97 02/23/21 21:07 75 97 02/23/21 21:05 91 H 108/67 05 21:02 91 H 100 02/23/21 21:00 16 02/23/21 20:57 72 98 02/23/21 20:52 83 98 02/23/21 20:51 67 106/64 05 20:47 94 H 100 02/23/21 20:45 18 02/23/21 20:42 101 H 100 02/23/21 20:37 80 100 02/23/21 20:34 95 H 102/70 05 20:32 71 100/64 97 02/23/21 20:30 64 18 103/61 05 20:28 96 H 96/61 L 02/23/21 20:27 94 H 99 05 20:26 95 H 97/61 L 05 20:24 62 105/62 05 20:22 65 100/59 L 99 02/23/21 20:20 113 H 98/62 L 05 20:18 85 101/60 05 20:17 68 100 05 20:16 64 106/63 05 20:15 18 05 20:14 57 L 103/60 05 20:13 56 L 99/61 L 02/23/21 20:12 56 L 98 02/23/21 20:10 64 82/50 L 02/23/21 20:09 76 91 02/23/21 20:07 98 H 100 02/23/21 20:02 87 97 02/23/21 20:00 18 02/23/21 19:58 62 99/55 L 02/23/21 19:57 65 94 02/23/21 19:55 18 02/23/21 19:52 94 H 98 02/23/21 19:50 18 02/23/21 19:47 66 96 02/23/21 19:45 18 02/23/21 19:42 71 98 02/23/21 19:40 18 02/23/21 19:39 83 96/57 L 02/23/21 19:38 78 99/59 L 02/23/21 19:37 102 H 97 02/23/21 19:36 63 102/61 02/23/21 19:35 18 02/23/21 19:34 72 105/66 02/23/21 19:32 68 101/56 L 98 02/23/21 19:30 20 02/23/21 19:27 74 99 02/23/21 19:25 89 79 L 02/23/21 19:22 75 100 02/23/21 19:15 36.8 C 20 Pain Intensity Abdomen: Pain Intensity: 5 Transfer of Care Handoff Completed per policy Notes Mental Status: alert / awake / arousable Patient Amnestic to Procedure: Yes Nausea / Vomiting: adequately controlled Pain: adequately controlled Airway Patency, RR, SpO2: stable & adequate BP & HR: stable & adequate Hydration State: stable & adequate Anesthetic Complications: no major complications apparent
--- NOTE | 2021-02-24 19:14 | Post Operative Brief Note ---
Immediate Post Op Note v1 Date of Surgery February 24, 2021 Pre & Post Diagnosis Operation Date: 02/24/21 16:30 <No data on this case meets the specified criteria> Operation Date: 02/24/21 16:45 Pre-Op Diagnosis: 1: Failed TOLAC/ 2. Arrest of descend despite rupture of membranes and Pitocin Post-Op Diagnosis: 1: Failed TOLAC/ 2. Arrest of descend despite rupture of membranes and Pitocin I identified the patient and participated in the time-out.: Yes Procedure Operation Date: 02/24/21 16:30 <No data on this case meets the specified criteria> Operation Date: 02/24/21 16:45 Actual Procedures p Section in LD OR3 LIVE FEMALE CHILD AT 1740 and BTL- Chavo Anthony MD Surgeon Chavo Amato MD [facility] Estimated Blood Loss 500 Findings Consistent with Post-Op Diagnosis Drains Edward Catheter Anesthesia Type Labor Epidural Complications none Disposition Accompanied Patient To Recovery: Yes Disposition: L&D
[2021-02-25] MEDS ORDERED: OXYTOCIN 20 UNITS in LACTATED RINGER'S 1,000 ML IV SCH (02:31)
--- NOTE | 2021-02-25 05:28 | Operative Report (OR) ---
DATE OF OPERATION: 02/24/2021 PREOPERATIVE DIAGNOSES: The patient is a 40-year-old G3, P1-0-1-1 at 40 weeks and 5 days of gestation. She was been admitted for induction of labor for Trial of labor after Cserean/ Vaginal after Ceserean ( TOLAC/) yesterday Arrest of dilatation, failed induction of labor/TOLAC/ despite AROM / Pitocin and adequate uterine contractions Desire for permanent sterilization. POSTOPERATIVE DIAGNOSES: The patient is a 40-year-old G3, P1-0-1-1 at 40 weeks and 5 days of gestation. She was been admitted for induction of labor for Trial of labor after Cserean/ Vaginal after Ceserean ( TOLAC/) yesterday Arrest of dilatation, failed induction of labor/TOLAC/ despite AROM / Pitocin and adequate uterine contractions Desire for permanent sterilization. PROCEDURE: Repeat low transverse with Pfannenstiel skin incision and bilateral tubal ligation with [place] method. SURGEON: Chavo Amato MD [employer]ING [employer] CUTTING PRESS FEEDER: NOHEMI Roblero, labor and delivery nurse. ANESTHESIA: Labor epidural. ANESTHESIOLOGIST: Dr. Robertson. COMPLICATIONS: None. DRAINS: Edward catheter drained 250 mL of clear urine. EBL: 500 ml. FINDINGS: Baby was a viable female infant delivered in cephalic presentation at 1740 hours. Apgars were 9/10 and weight was 3772 grams. Maternal findings: Normal uterus, fallopian tubes and ovaries. DESCRIPTION OF PROCEDURE: The patient was taken to the operating room where epidural anesthesia was found to be adequate. She was placed in dorsal supine position with a leftward tilt. She was prepared and draped in usual sterile fashion. A Pfannenstiel skin incision was made from the old scar, carried through to the underlying layer of fascia with the Bovie. Fascia was incised in the midline and incision was extended laterally with the help of Spencer scissors. Upper aspect of the fascial incision was then grasped with 2 Aixa clamps, elevated, underlying rectus muscles were dissected off sharply with Spencer scissors. Lower aspect of the fascial incision was then grasped with 2 Aixa clamps, elevated, underlying rectus muscles were dissected off sharply with Spencer scissors and bluntly with fingers. Rectus muscles were in the midline. Peritoneum was entered bluntly with fingers. Peritoneal incision was extended superiorly and inferiorly with good visualization of the bladder. Bladder blade was inserted. Vesicouterine peritoneum was identified, grasped with pickups, and entered sharply with Metzenbaum scissors. Bladder flap was created digitally and bladder blade was reinserted. Lower uterine segment was thin, but intact. It was incised in a transverse fashion. Incision was extended laterally with the help of fingers. Membranes were ruptured, clear fluid was obtained. Baby's head was brought to the incision and had cord prolapse, but it was delivered quickly. Shoulders were delivered with minimal traction. Mouth and nose were suctioned. Baby was vigorously crying and moving. Cord was clamped x2 and cut at 1-minute delay and baby was handed over to the waiting pediatric team. The placenta was delivered manually as intact and complete. Uterus was exteriorized, cleared of all clots and debris, it was felt to be empty. The uterine incision was repaired with 0 Vicryl in a running locked fashion and a second imbricating layer was placed with another 0 Vicryl in a running locked fashion. Excellent hemostasis was achieved. Cul-de-sac was irrigated with warm normal saline and suctioned. Normal peritoneum, normal uterus/ fallopian tubes and ovaries were seen. Then the right fallopian tube was identified, grasped with [place] clamps in the avascular site of mesosalpinx, and the mesosalpinx was entered with 2-0 plain catgut. A loop was made around the two Babcocks, two different ties were placed under the loop. Then about 2-3 cm fallopian tube was excised and sent to pathology. Rest of the tube was hemostatic and intact. Attention was turned to the left fallopian tube. Mesosalpinx was identified and it was held with Carlos Manuel from the avascular site. Again it was entered with 2-0 plain catgut and a loop was made around the Babcocks and two sutures were placed under the loop and then again 2-3 cm portion of tube was excised and sent to the pathology. Rest of the tube was intact and hemostatic. Then uterine incision was checked to be hemostatic. Uterus was returned to the patient's abdomen. Pelvis was irrigated with warm normal saline and suctioned and the incision was checked to be again hemostatic. Both fallopian tubes were checked to be hemostatic and intact after that. Parietal peritoneum was reapproximated with 3-0 Vicryl in a running fashion. Rectus muscles were reapproximated with the same suture in a running fashion. Excellent hemostasis was achieved. Rectus fascia was reapproximated with 0 Vicryl in a running fashion. Subcuticular fat tissue was brought together with 3-0 Vicryl in a running fashion. Skin was closed with 4-0 Monocryl in a subcuticular fashion. The patient tolerated the procedure well. Sponge, lap, needle count was correct x3. No complications happened. I was present during whole procedure. She was given 2 grams of cefazolin before surgery and 500 mg of azithromycin during surgery. She was taken to L&D in stable condition. I attest to the content of the Intraoperative Record and any orders documented therein. Any exceptions are noted below. MTDD
[2021-02-25 06:05] LABS: Basophils # (auto) 0.01 K/uL (0-0.2); Basophils % (auto) 0.1 %; Eosinophils # (auto) 0.04 K/uL (0-0.5); Eosinophils % (auto) 0.3 %; Hematocrit (blood only) 32.4 % (37-47); Hemoglobin 10.9 g/dL (12.0-16.0); Immature Granulocytes # (auto) 0.05 K/uL (0.00-0.02); Immature Granulocytes % (auto) 0.3 %; Lymphocytes # (auto) 0.88 K/uL (1.2-3.4); Lymphocytes % (auto) 6.1 %; Mean Corpuscular Hemoglobin 31.6 pg (25-34); Mean Corpuscular Hgb Conc 33.6 g/dL (32-36); Mean Corpuscular Volume 93.9 fL (80-100); Mean Platelet Volume 11.4 fL (7.4-10.4); Monocytes # (auto) 0.73 K/uL (0.11-0.59); Monocytes % (auto) 5.1 %; Neutrophils # (auto) 12.64 K/uL (1.4-6.5); Neutrophils % (auto) 88.1 %; Platelet Count 143 K/uL (130-400); Red Blood Count 3.45 M/uL (4.2-5.4); White Blood Count 14.35 K/uL (4.8-10.8)
[2021-02-25] MEDS: SIMETHICONE 80 MG CHEW PO SCH ×4 (08:18→20:52)
[2021-02-25] MEDS: PRENATAL VITAMIN 1 TAB PO SCH (08:18)
[2021-02-25] MEDS: DOCUSATE SODIUM 100 MG CAP PO SCH ×2 (08:18→20:52)
[2021-02-25] MEDS: FERROUS SULFATE 325 MG TAB PO SCH (08:18)
--- NOTE | 2021-02-25 09:10 | Operative Report ---
Post Operative Report Pre & Post Diagnosis Operation Date: 02/24/21 16:30 <No data on this case meets the specified criteria> Operation Date: 02/24/21 16:45 Pre-Op Diagnosis: 1: Failed TOLAC/ 2. Arrest of descend despite rupture of membranes and Pitocin Post-Op Diagnosis: 1: Failed TOLAC/ 2. Arrest of descend despite rupture of membranes and Pitocin I identified the patient and participated in the time-out.: Yes Procedure Operation Date: 02/24/21 16:30 <No data on this case meets the specified criteria> Operation Date: 02/24/21 16:45 Actual Procedures p Section in LD OR3 LIVE FEMALE CHILD AT 1740 - Chavo Amato MD Surgeon Dr. Galloway Realty Specialist Valentine Estimated Blood Loss 500 Findings Consistent with Post-Op Diagnosis Specimens cord blood placenta Description of Procedure Repeat I attest to the content of the Intraoperative Record and any orders documented therein. Any exceptions are noted below.
--- NOTE | 2021-02-25 09:12 | Obstetrical Progress Note ---
Date of Service February 25, 2021 Subjective Voiding: fine catheter in place Passing Gas:: No Diet Tolerance:: clear liquids Lochia:: Small Feeding Type:: breast feeding Physical Exam Constitutional WD/WN, vitals as above well developed and comfortable incision c/d/i abdomen slightly distended with gas no edema neg Arthur's will advance diet and care Results & Data ([facility]) Vital Signs (Past 12 Hours) Vital Signs Temp Pulse Pulse Resp BP BP Pulse Ox 02/25/21 08:15 36.3 C L 75 18 92/55 L 98 02/25/21 07:15 16 97 02/25/21 06:30 18 97 02/25/21 05:20 18 98 02/25/21 04:15 36.5 C 68 17 92/56 L 98 02/25/21 03:05 18 96 02/25/21 02:00 17 95 02/25/21 01:00 17 95 02/25/21 00:00 18 96 02/24/21 23:10 36.8 C 69 16 92/54 L 96 02/24/21 23:00 18 96 02/24/21 22:00 16 96 02/24/21 21:30 36.6 C Laboratory Results 02/23/21 02/23/21 02/23/21 07:51 07:51 09:02 WBC 8.77 RBC 4.09 L Hgb 13.1 Hct 38.1 MCV 93.2 MCH 32.0 MCHC 34.4 RDW Std Deviation 47.2 H RDW Coeff of Randi 13.7 Plt Count 170 MPV 11.5 H Immature Gran % (Auto) Neut % (Auto) Lymph % (Auto) [place] % (Auto) Eos % (Auto) Baso % (Auto) Neut # (Auto) Lymph # (Auto) [place] # (Auto) Eos # (Auto) Baso # (Auto) Immature Gran # (Auto) SARS-CoV-2, RNA, NAAT NEGATIVE Blood Type A Positive Antibody Screen NEGATIVE 02/24/21 02/25/21 16:04 05:44 WBC 11.54 H 14.35 H RBC 3.94 L 3.45 L Hgb 12.4 10.9 L Hct 36.3 L 32.4 L MCV 92.1 93.9 MCH 31.5 31.6 MCHC 34.2 33.6 RDW Std Deviation 45.7 48.0 H RDW Coeff of Randi 13.8 14.0 Plt Count 152 143 MPV 11.5 H 11.4 H Immature Gran % (Auto) 0.5 0.3 Neut % (Auto) 84.9 88.1 Lymph % (Auto) 9.8 6.1 [place] % (Auto) 4.5 5.1 Eos % (Auto) 0.2 0.3 Baso % (Auto) 0.1 0.1 Neut # (Auto) 9.80 H 12.64 H Lymph # (Auto) 1.13 L 0.88 L [place] # (Auto) 0.52 0.73 H Eos # (Auto) 0.02 0.04 Baso # (Auto) 0.01 0.01 Immature Gran # (Auto) 0.06 H 0.05 H SARS-CoV-2, RNA, NAAT Blood Type Antibody Screen
[2021-02-25] MEDS ORDERED: ONDANSETRON INJ 2 MG/ML 2 ML VIAL IV PRN (12:11)
[2021-02-25] MEDS ORDERED: diphenhydrAMINE 50 MG/ML VIAL IV PRN (12:11)
[2021-02-25] MEDS ORDERED: oxyCODONE/ACETAMINOPHEN 5mg/325mg TAB PO PRN (12:11)
[2021-02-25] MEDS ORDERED: KETOROLAC 30 MG/ML VIAL IV PRN (12:11)
[2021-02-25] MEDS ORDERED: MEPERIDINE HCL 50 MG/ML CARP IV PRN (12:11)
[2021-02-25] MEDS ORDERED: PROMETHAZINE HCL 25 MG in SODIUM CHLORIDE 0.9% 50 ML IV PRN (12:11)
[2021-02-25] MEDS ORDERED: diphenhydrAMINE Capsule 25 MG CAP PO PRN (12:11)
[2021-02-25] MEDS: IBUPROFEN 600 MG TAB PO PRN (16:57)
[2021-02-25] MEDS ORDERED: bisacodyL 5 MG TABEC PO SCH (20:00)
[2021-02-26] MEDS: IBUPROFEN 600 MG TAB PO PRN ×3 (01:55→14:07)
[2021-02-26 06:30] LABS: Hematocrit (blood only) 30.5 % (37-47); Hemoglobin 10.3 g/dL (12.0-16.0)
[2021-02-26] MEDS: DOCUSATE SODIUM 100 MG CAP PO SCH (08:03)
[2021-02-26] MEDS: FERROUS SULFATE 325 MG TAB PO SCH (08:03)
[2021-02-26] MEDS: PRENATAL VITAMIN 1 TAB PO SCH (08:03)
[2021-02-26] MEDS: SIMETHICONE 80 MG CHEW PO SCH ×3 (08:03→17:03)
--- NOTE | 2021-02-26 08:23 | Obstetrical Progress Note ---
Date of Service February 26, 2021 Assessment & Plan (1) delivery delivered: POD #2 pt doing well no complaints disch home PM Subjective Ambulation: ambulating normally Voiding: no voiding problems Passing Gas:: Yes Diet Tolerance:: clear liquids Lochia:: Small Feeding Type:: breast feeding Review of Systems All systems reviewed & are unremarkable except as noted in HPI & below Physical Exam Constitutional WD/WN, vitals as above well developed and well nourished Eyes PERRL, conjunctivae normal, anicteric sclerae ENMT external ear and nose normal, oropharynx normal Neck trachea midline, no thyromegaly Respiratory normal respiratory effort, lungs clear to auscultation Cardiovascular RRR, no murmur, no edema Chest (Breasts) normal inspection/palpation of breasts Gastrointestinal (Abdomen) normal bowel sounds, soft, nontender, no hepatosplenomegaly Musculoskeletal no cyanosis or clubbing, extremities motor strength 5/5 Skin no rashes, warm and dry + incision (Clean,dry and intact) Neurologic patellar DTR's 2+ bilat, sensation intact Psychiatric A+Ox3, euthymic affect Genitourinary normal external appearance Lymphatic no cervical or axillary lymphadenopathy Results & Data ([facility]) Vital Signs (Past 12 Hours) Vital Signs Temp Pulse Pulse Resp BP Pulse Ox 02/26/21 07:25 36.9 C 72 18 104/67 98 02/25/21 22:53 36.7 C 72 16 96/61 L 98
[2021-02-26] MEDS ORDERED: bisacodyL 10 MG SUPP PR PRN (18:23)
--- NOTE | 2021-03-01 06:31 | Discharge Summary (DS) ---
DETAILS OF ADMISSION: The patient is a 40-year-old G3, P1-0-1-1 at 40 weeks and 4 days of gestation, who was admitted on 02/23/2021 for induction of labor for postdates, and trial of labor after /vaginal after . Her cervix was closed. She was placed on low-dose of Pitocin and then a Edward bulb was inserted at the evening. She had contractions and received epidural. Next day when I came in on 02/24/2021 her cervix was 2 cm dilated, 70% effaced with a bulging amniotic bag. Edward was out. AROM was done by myself and clear fluid was obtained. Her Pitocin dose was increased. She had regular contractions all day with minimal change in her cervix. She progressed to 3-4 cm and the head stayed at -2 station with no progress. After trial of many hours, decision was made to proceed with repeat . She also desired a tubal ligation with her . She delivered a viable female via repeat . Apgars were 9/10, weight was 3772 grams and she also had tubal ligation with her repeat . See dictated op note for details. Surgery was uncomplicated. On postop period, the patient was doing well. Vital signs stable, afebrile. Her H and H was 10.9/32.4. On postoperative day #1, the patient was passing gas, . She was advanced to regular diet, ambulated. Her physical exam was unremarkable. Incision was clean, dry and intact. On postop day #2, the patient was doing well. Vital signs stable, afebrile. Physical exam was unremarkable. Incision was clean, dry and intact. She desired to be discharged home on postoperative day #2. Discharge instructions were given. Prescriptions were written for pain. She is to be seen in office in a week for incision check. All questions were answered. GAVIN
== END 2021-02-26 18:50 | disposition home or self-care (01) | DRG 788 ==
LOC: 4S1 07:36 → 4S2 20:12 → 4S1 20:13 → 4S2 02-24 20:57